=== PATIENT | male | born 1965 | race African-American/Black ===

== ENCOUNTER 2019-11-24 19:18 | Emergency (ER) | payer SELFPAY ==
[~2019-11-24] VITALS: Ht 188 cm; Wt 113.1 kg
--- NOTE | 2019-11-24 21:26 | NUR ---
FROM LOBBY TO ROOM AT THIS TIME.
--- NOTE | 2019-11-24 21:52 | NUR ---
PT MEDICATED FOR PAIN PER MAR. BP CURRENTLY ELEVATED, HX OF HTN, STS HASNT TAKEN MEDS X2 DAYS BUT HAS THEM AT HOME
[2019-11-24 21:53] VITALS: BP 208/110
--- NOTE | 2019-11-24 21:54 | NUR ---
LAB AT BEDSIDE
[2019-11-24 22:13] LABS: ALBUMIN 3.5 g/dL (3.4-5.0); ANION GAP 4 mmol/L (5-15); CHLORIDE 114 mmol/L (98-107)
[2019-11-24 22:14] LABS: CREATININE 2.06 mg/dL (0.7-1.3)
--- NOTE | 2019-11-24 22:22 | NUR ---
ALL RESULTS BACK AT THIS TIME, CHART UP FOR RECHECK
== END 2019-11-24 22:53 | disposition home or self-care (01) ==
LOC: ED 22:14
DX: M19.011 Primary osteoarthritis, right shoulder (principal); E10.65 Type 1 diabetes mellitus with hyperglycemia; R73.09 Other abnormal glucose; I10 Essential (primary) hypertension
CPT/HCPCS: 36415; 80048; 82040; 93005; 99284

== ENCOUNTER 2020-01-13 12:58 | Inpatient (IN) | payer MEDICARE, OTHER ==
[~2020-01-13] VITALS: Ht 180.3 cm; Wt 109.7 kg
--- NOTE | 2020-01-13 13:15 | NUR ---
BIB [facility] FOR ALTERED MENTAL STATUS, HYPOGLYCEMIA, HTN, HEADACHE. PER EMS REPORT, PT INITIAL FSBG 40, GIVEN IVP D10 (25ML) AND RECHECK WAS 108. PT WAS INITIALLY UNRESPONSIVE ON SCENE BUT RESPONDED TO D10, AAO X SELF ONLY. PT FOLLOWS COMMANDS, NIH 0, PUPILS 3MM BRISK BILATERALLY. PT AMBULATORY FROM [facility] TO [facility], ON ROOM AIR. DRESSED IN GOWN AND ATTACHED TO ALL MONITORS. PT ARRIVED WITH PIV ALREADY IN PLACE. FAMILY AT BEDSIDE, SIDERAIL X [address], CALL LIGHT WITHIN REACH, MD AT BEDSIDE FOR EXAM.
[2020-01-13] MEDS ORDERED: SODIUM CHLORIDE FLUSH 10ML SYR IVF ONE (13:30)
--- NOTE | 2020-01-13 13:34 | NUR ---
FSBG RECHECK 87, MD UPDATED. EKG COMPLETED.
[2020-01-13 13:42] LABS: BASOPHILS % (AUTO) 0 % (0-1); EOSINOPHILS % (AUTO) 0 % (1-7); LYMPHOCYTES # (AUTO) 0.66 x10^3/uL (1-3.4); LYMPHOCYTES % (AUTO) 10 % (22-44); MD NO; MEAN CORPUSCULAR HEMOGLOBIN 29.8 pg (27.5-34.5); MEAN CORPUSCULAR HGB CONC 33.1 g/dL (33.2-36.2); MEAN CORPUSCULAR VOLUME 90.1 fL (81-97); MONOCYTES # (AUTO) 0.22 x10^3/uL (0.2-0.8); MONOCYTES % (AUTO) 3 % (2-9); NEUTROPHILS # (AUTO) 5.55 x10^3/uL (1.8-6.8); NEUTROPHILS % (AUTO) 86 % (42-75); PLATELET COUNT 158 x10^3/uL (130-400); RED BLOOD COUNT 5.62 x10^6/uL (4.38-5.82); RED CELL DISTRIBUTION WIDTH 15.6 % (9.4-14.8)
[2020-01-13 13:51] LABS: INTERNATIONAL NORMALIZED RATIO 0.93 (0.93-1.1); PROTHROMBIN TIME 9.8 Seconds (9.6-11.5)
[2020-01-13 13:52] LABS: ALANINE AMINOTRANSFERASE 23 U/L (12-78); ALBUMIN 3.6 g/dL (3.4-5.0); ANION GAP 6 mmol/L (5-15); CALCIUM 9.1 mg/dL (8.5-10.1); CHLORIDE 105 mmol/L (98-107)
[2020-01-13 13:53] LABS: SALICYLATE LEVEL < 1.7 mg/dL (2.8-20.0)
--- NOTE | 2020-01-13 13:54 | NUR ---
PT TO CT.
[2020-01-13 13:57] LABS: ALKALINE PHOSPHATASE 118 U/L (45-117); BILIRUBIN,TOTAL 0.6 mg/dL (0.2-1.0); TOTAL PROTEIN 8.5 g/dL (6.4-8.2); TROPONIN I < 0.015 ng/mL (0.000-0.045)
--- NOTE | 2020-01-13 14:01 | NUR ---
PT BACK FROM CT.
--- NOTE | 2020-01-13 14:23 | NUR ---
Break RN note: Pt resting in bed with eyes closed, resp even and unlabored. Pt c/o 08/07 [place]. FSBS=79.
[2020-01-13] MEDS ORDERED: ACETAMINOPHEN 325 MG TABLET ONE (14:29)
[2020-01-13] MEDS ORDERED: ACETAMINOPHEN 500 MG TABLET PO ONE (14:30)
[2020-01-13] MEDS ORDERED: ACETAMINOPHEN 500 MG TABLET ONE (14:32)
--- NOTE | 2020-01-13 14:36 | NUR ---
Break RN note: Discussed pt condition with Dr. Massey. Orders received for Tylenol and Clondine. Pt medicated per order. Dr. Massey at bedside to discuss POC with pt.
--- NOTE | 2020-01-13 14:45 | NUR ---
PT GIVEN FOOD PER MD REQUEST.
[2020-01-13] MEDS ORDERED: SODIUM CHLORIDE FLUSH 10ML SYR IVF PRN (15:00)
--- NOTE | 2020-01-13 15:17 | NUR ---
REPORT GIVEN TO JAME ARNDT. PT TO TRANSFER TO INPATIENT STATUS.
[2020-01-13] MEDS ORDERED: LANTUS (15:25)
[2020-01-13] MEDS ORDERED: TOUJEO (15:25)
[2020-01-13] MEDS ORDERED: ATORVASTATIN (15:25)
[2020-01-13] MEDS ORDERED: ELIQUIS (15:25)
[2020-01-13] MEDS ORDERED: AMLODIPINE (15:25)
[2020-01-13] MEDS ORDERED: SIROLIMUS (15:25)
[2020-01-13] MEDS ORDERED: GABAPENTIN (15:25)
[2020-01-13] MEDS ORDERED: TACROLIMUS (15:25)
[2020-01-13] MEDS ORDERED: HUMALOG (15:25)
[2020-01-13] MEDS ORDERED: hydrALAzine 20 MG/ML, 1ML IVPush PRN (16:00)
[2020-01-13] MEDS ORDERED: ONDANSETRON 2MG/ML, 2ML IVPush PRN (16:00)
[2020-01-13] MEDS ORDERED: ACETAMINOPHEN 325 MG TABLET PO PRN (16:00)
[2020-01-13] MEDS: LABETALOL 5MG/ML, 20ML IVPush SCH ×2 (17:13→22:00)
[2020-01-13 19:11] VITALS: BP 149/78
[2020-01-13] MEDS: APIXABAN 5 MG TABLET PO SCH (19:55)
[2020-01-13] MEDS: AMLODIPINE 5 MG TABLET PO SCH (19:55)
[2020-01-13] MEDS: INSULIN GLARGINE 100 UNITS/ML, PEN SQ-INSULIN SCH (21:51)
[2020-01-13 22:06] VITALS: BP 115/69
[2020-01-14 01:10] VITALS: BP 115/71
[2020-01-14] MEDS: LABETALOL 5MG/ML, 20ML IVPush SCH (03:41)
[2020-01-14 05:34] LABS: CHLORIDE 106 mmol/L (98-107)
[2020-01-14 05:36] LABS: BASOPHILS # (AUTO) 0.03 x10^3/uL (0-0.1); BASOPHILS % (AUTO) 1 % (0-1); EOSINOPHILS # (AUTO) 0.05 x10^3/uL (0-0.4); EOSINOPHILS % (AUTO) 1 % (1-7); LYMPHOCYTES # (AUTO) 1.51 x10^3/uL (1-3.4); LYMPHOCYTES % (AUTO) 28 % (22-44); MD NO; MEAN CORPUSCULAR HEMOGLOBIN 30.3 pg (27.5-34.5); MEAN CORPUSCULAR HGB CONC 33.6 g/dL (33.2-36.2); MEAN PLATELET VOLUME 9.3 fL (7.4-10.4); MONOCYTES # (AUTO) 0.56 x10^3/uL (0.2-0.8); MONOCYTES % (AUTO) 11 % (2-9); NEUTROPHILS # (AUTO) 3.18 x10^3/uL (1.8-6.8); NEUTROPHILS % (AUTO) 60 % (42-75); PLATELET COUNT 158 x10^3/uL (130-400); RED CELL DISTRIBUTION WIDTH 15.1 % (9.4-14.8)
[2020-01-14 05:42] LABS: ANION GAP 6 mmol/L (5-15); CALCIUM 8.4 mg/dL (8.5-10.1); CHOLESTEROL, TOTAL 235 mg/dL (140-239); CREATININE 2.02 mg/dL (0.7-1.3); HDL CHOL % 20 % (26-37); HDL CHOLESTEROL (DIRECT) 47 mg/dL (40-60); LDL CHOLESTEROL,CALCULATED 162 mg/dL (54-169); LDL/HDL RATIO 3.4 (0.5-3.0); TRIGLYCERIDES 132 mg/dL (50-200); VLDL CHOLESTEROL 26 mg/dL (0-25)
[2020-01-14 07:05] VITALS: BP 125/72
[2020-01-14 09:56] LABS: MICROSCOPIC INDICATED
[2020-01-14 10:13] LABS: CULTURE INDICATED? NO
[2020-01-14] MEDS: APIXABAN 5 MG TABLET PO SCH ×2 (10:35→21:04)
[2020-01-14] MEDS: AMLODIPINE 5 MG TABLET PO SCH ×2 (10:35→21:04)
[2020-01-14] MEDS: SENNA/DOCUSATE TABLET PO SCH (10:36)
[2020-01-14 13:23] VITALS: BP 122/74
[2020-01-14] MEDS: INSULIN LISPRO 100 UNITS/ML, PEN SQ-INSULIN SCH ×2 (16:27→21:06)
[2020-01-14 20:03] VITALS: BP 144/77
[2020-01-14] MEDS: INSULIN GLARGINE 100 UNITS/ML, PEN SQ-INSULIN SCH (21:05)
[2020-01-15 02:00] VITALS: BP 120/72
[2020-01-15 05:53] LABS: ALBUMIN 2.8 g/dL (3.4-5.0); ANION GAP 6 mmol/L (5-15); CALCIUM 8.2 mg/dL (8.5-10.1); CHLORIDE 107 mmol/L (98-107)
[2020-01-15 06:12] LABS: MEAN CORPUSCULAR HEMOGLOBIN 30.1 pg (27.5-34.5); MEAN CORPUSCULAR HGB CONC 33.6 g/dL (33.2-36.2); MEAN CORPUSCULAR VOLUME 89.7 fL (81-97); MEAN PLATELET VOLUME 8.9 fL (7.4-10.4); PLATELET COUNT 164 x10^3/uL (130-400); RED BLOOD COUNT 5.07 x10^6/uL (4.38-5.82); RED CELL DISTRIBUTION WIDTH 15.4 % (9.4-14.8)
[2020-01-15 06:13] LABS: MD YES
[2020-01-15 06:16] LABS: <RBC MORPHOLOGY> NORMAL; BASOS#(MANUAL) 0.04 x10^3/uL (0-0.1); BASOS% (MANUAL) 1 % (0-1); EOS#(MANUAL) 0.04 x10^3/uL (0.0-0.4); EOS% (MANUAL) 1 % (1-7); LYMPH#(MANUAL) 1.84 x10^3/uL (1-3.4); LYMPHS% (MANUAL) 46 % (22-44); MONOS% (MANUAL) 10 % (2-9); SEG#(MANUAL) 1.68 x10^3/uL (1.8-6.8); SEGS% (MANUAL) 42 % (42-75)
[2020-01-15 06:17] LABS: <PLATELET ESTIMATE> ADEQUATE; <PLT MORPHOLOGY> NORMAL PLT MORPH
[2020-01-15 06:48] LABS: MICROSCOPIC NOT IND
[2020-01-15 07:56] VITALS: BP 145/80
[2020-01-15] MEDS: INSULIN LISPRO 100 UNITS/ML, PEN SQ-INSULIN SCH ×4 (08:36→20:35)
[2020-01-15] MEDS: SENNA/DOCUSATE TABLET PO SCH (08:37)
[2020-01-15] MEDS: AMLODIPINE 5 MG TABLET PO SCH (08:37)
[2020-01-15] MEDS: APIXABAN 5 MG TABLET PO SCH ×2 (08:37→20:34)
[2020-01-15] MEDS: TACROLIMUS 0.5 MG CAPSULE PO SCH ×2 (08:37→20:33)
[2020-01-15 14:19] VITALS: BP 136/79
[2020-01-15 17:07] VITALS: BP 155/70
[2020-01-15 19:54] VITALS: BP 121/72
[2020-01-15] MEDS ORDERED: INSULIN GLARGINE 100 UNITS/ML, PEN SQ-INSULIN SCH (21:00)
[2020-01-16 00:49] VITALS: BP 131/77
[2020-01-16 07:10] VITALS: BP 152/83
[2020-01-16] MEDS: SENNA/DOCUSATE TABLET PO SCH ×2 (09:00→09:01)
[2020-01-16] MEDS: APIXABAN 5 MG TABLET PO SCH (09:01)
[2020-01-16] MEDS: INSULIN LISPRO 100 UNITS/ML, PEN SQ-INSULIN SCH ×2 (09:01→11:31)
[2020-01-16] MEDS: TACROLIMUS 0.5 MG CAPSULE PO SCH (09:01)
[2020-01-16] MEDS ORDERED: INSU100I13 SQ-INSULIN (11:17)
[2020-01-16] MEDS ORDERED: TACR0.5C4 PO (11:17)
[2020-01-16] MEDS ORDERED: HYDR-3341 PO (11:17)
[2020-01-16] MEDS ORDERED: APIX5TAB PO (11:17)
[2020-01-16 13:12] LABS: CALCIUM 8.7 mg/dL (8.5-10.1); CHLORIDE 108 mmol/L (98-107)
[2020-01-16 13:16] LABS: ANION GAP 6 mmol/L (5-15); CREATININE 1.94 mg/dL (0.7-1.3)
== END 2020-01-16 12:46 | disposition home or self-care (01) | DRG 639 ==
LOC: ED 13:19 → SUATTDRO 15:18 → EDIP 15:24 → 4WST 15:37
PROVIDERS: ADMIT Internal Medicine; ATTEND Internal Medicine
DX: E10.649 Type 1 diabetes mellitus with hypoglycemia without coma (principal); N17.9 Acute kidney failure, unspecified; D63.8 Anemia in other chronic diseases classified elsewhere; E10.22 Type 1 diabetes mellitus with diabetic chronic kidney disease; E78.5 Hyperlipidemia, unspecified; I12.9 Hypertensive chronic kidney disease with stage 1 through stage 4 chronic kidney disease, or unspecified chronic kidney disease; I16.0 Hypertensive urgency; I25.10 Atherosclerotic heart disease of native coronary artery without angina pectoris; I44.1 Atrioventricular block, second degree; N18.3 Chronic kidney disease, stage 3 (moderate); Z79.01 Long term (current) use of anticoagulants; Z79.899 Other long term (current) drug therapy; Z86.718 Personal history of other venous thrombosis and embolism; Z91.14 Patient's other noncompliance with medication regimen
CPT/HCPCS: 36415; 70450; 71045; 76770; 80048; 80053; 80061; 80069; 80197; 80307; 81001; 81003; 82043; 82140; 82306; 82436; 82570; 82962; 83036; 83605; 83735; 83880; 83970; 84133; 84156; 84300; 84484; 85025; 85610; 85730; 93005; 93306; 99285; G0378; J7507; J1815